=== PATIENT | female | born 1970 | race African-American/Black ===

== ENCOUNTER 2019-05-02 12:00 | Emergency (ER) | payer MEDICAID ==
[~2019-05-02] VITALS: Ht 167.6 cm; Wt 81.6 kg
[2019-05-02 12:04] VITALS: BP 145/96
--- NOTE | 2019-05-02 12:04 | NUR ---
PT TAKEN TO BED 5.
--- NOTE | 2019-05-02 12:17 | NUR ---
PT BIB SELF WITH C/O HEADACHE AND NAUSEA/VOMITTING S/P HERNIA SURGERY ON 04/29/2019. PER PT, STATES FEELING NOT GOOD AFTER SHE HAD THE HERNIA REPAIR. PT REPORTS HAVING FEVER SINCE HER HERNIA REPAI WITH EDWARDS, HAS N/ V. HX OF PARTIAL HYSTRECTOMY. LPM ABOUT A YEAR AGO. PT TAKES HYDROCODONE-ACETAMINOPHEN ONE TO TWO TAB Q6 HRS PRN . NO MEDS WAS TAKEN AT HOME TODAY. ER MD TO SEE THE PT. PROVIDED WITH URINE CUP FOR THE SPECIMEN COLLECTION. WILL CONTINUE TO MONITOR PT.
[2019-05-02 13:46] LABS: APPEARANCE,URINE HAZY (CLEAR); BILIRUBIN,URINE 1+ (NEGATIVE); BLOOD, URINE TRACE-I (NEGATIVE); COLOR,URINE YELLOW (YELLOW); LEUKOCYTE ESTERASE ,URINE 1+ (NEGATIVE); NITRITE, URINE NEGATIVE (NEGATIVE); UGLUCOSE NEGATIVE (NEGATIVE)
[2019-05-02 13:47] LABS: BASOPHILS % (AUTO) 0.4 % (0.0-2.0); EOSINOPHILS # (AUTO) 0.1 K/uL (0-0.4); HEMATOCRIT 43.9 % (36-48); HEMOGLOBIN 14.4 g/dL (12.0-16.0); LYMPHOCYTES # (AUTO) 1.7 K/uL (2.5-16.5); MEAN CORPUSCULAR HEMOGLOBIN 29 pg (27-31); MEAN CORPUSCULAR HGB CONC 33 g/dL (33-37); MEAN CORPUSCULAR VOLUME 86.6 fL (80-94); MONOCYTES # (AUTO) 0.9 K/uL (0.8-1.0); MONOCYTES % (AUTO) 9.4 % (1.7-9.3); NEUTROPHILS # (AUTO) 7.1 K/uL (1.8-7.7); NEUTROPHILS % (AUTO) 72.2 % (42.2-75.2); PLATELET COUNT (AUTO) 188 K/uL (140-450); RED BLOOD CELL COUNT(AUTO) 5.07 MIL/uL (4.20-5.40); RED CELL DISTRIBUTION WIDTH 14.3 % (11.6-13.7); WHITE BLOOD COUNT (AUTO) 9.8 K/uL (4.8-10.8)
[2019-05-02 14:02] LABS: RBC,URINE 0-5 /HPF (0-5); WBC,URINE 0-5 /HPF (0-5)
[2019-05-02] MEDS ORDERED: NACL 0.9% 1,000 ML IV ONE (14:50)
[2019-05-02] MEDS ORDERED: HYDR-5122 PO (15:03)
--- NOTE | 2019-05-02 15:20 | NUR ---
TREID IV TWICE ON PT. RN MELISA TRYING TO GET THE IV .
[2019-05-02 15:24] LABS: ANION GAP 13.2 (8-16); CARBON DIOXIDE 27.6 mmol/L (21-32); POTASSIUM 3.8 mmol/L (3.5-5.1)
[2019-05-02 15:29] LABS: ALBUMIN 3.2 g/dL (3.4-5.0); TOTAL BILIRUBIN 0.8 mg/dL (0.0-1.0)
--- NOTE | 2019-05-02 15:50 | NUR ---
UNABLE TO OBTAIN IV ACCESS, DR CUNNINGHAM MADE AWARE, OK TO CT W/O CONTRAST.
--- NOTE | 2019-05-02 15:58 | NUR ---
PT TO BE TAKEN TO CT VIA W/C.
--- NOTE | 2019-05-02 16:24 | NUR ---
UNABLE TO START IV ON THE PT. HAD CT WITHOUT CONTRAST. PT RESTING COMFORTABLY IN HER BED.
[2019-05-02] MEDS ORDERED: PIPERACILLIN/TAZOBACTAM 3.375 GM in DEXTROSE 5% 50 ML IV ONE (17:55)
[2019-05-02] MEDS ORDERED: PIPERACILLIN/TAZOBACTAM 3.375 GM VIAL IV ONE (17:58)
[2019-05-02] MEDS ORDERED: ACETAMINOPHEN EXTRA STRENGTH 500 MG TAB PO ONE (18:55)
--- NOTE | 2019-05-02 19:25 | NUR ---
REPORT GIVEN TO PM RN AT BEDSIDE. ABX IV COMPLETED.
[2019-05-02 19:55] VITALS: BP 157/78
--- NOTE | 2019-05-02 19:55 | NUR ---
VSS. PT AMBULATED TO RESTROOM. STEADY GAIT. GAVE PREPORT TO [facility] FOR TRANSFER TO [facility].
--- NOTE | 2019-05-05 07:41 | NUR ---
Late entry. COnfirmed with RN that 1000ml 0.9 NS IV completed at 1800.
== END 2019-05-02 20:36 | disposition short-term general hospital (02) ==
LOC: MED 12:00
DX: R11.2 Nausea with vomiting, unspecified (principal); R42 Dizziness and giddiness; Z79.899 Other long term (current) drug therapy; Z90.710 Acquired absence of both cervix and uterus; Z98.890 Other specified postprocedural states
CPT/HCPCS: 36415; 74176; 80053; 81001; 81025; 85025; 87086; 96361; 96365; 99285; J2543

== ENCOUNTER 2020-09-29 21:51 | Emergency (ER) | payer MEDICAID ==
[~2020-09-29] VITALS: Ht 167.6 cm; Wt 77.1 kg
[~2020-09-29 21:51] MED LIST: HYDR-5122 PO
[2020-09-29 21:56] VITALS: BP_SYST 107; BP_SYST 215; BP_DIAS 100; BP_DIAS 78
--- NOTE | 2020-09-29 21:56 | NUR ---
to bed ambulatory
--- NOTE | 2020-09-29 22:01 | NUR ---
Pt c/o vaginal bleeding with clots x1 month. States she has to change pads 3-4x/day. Last regular menstrual period was three years ago. Denies urinary symptoms. Hx of HTN. A/Ox4, ambulatory with steady gait. Noted with generalized edema.
[2020-09-29] MEDS ORDERED: NACL 0.9% 1,000 ML IV ONE (22:15)
[2020-09-29 22:42] LABS: BASOPHILS # (AUTO) 0.1 K/uL (0.00-0.22); EOSINOPHILS # (AUTO) 0.1 K/uL (0-0.4); EOSINOPHILS % (AUTO) 2.1 % (0.0-4.0); LYMPHOCYTES # (AUTO) 2.1 K/uL (2.5-16.5); LYMPHOCYTES % (AUTO) 33.6 % (20.5-51.1); MEAN CORPUSCULAR HEMOGLOBIN 29 pg (27-31); MEAN CORPUSCULAR HGB CONC 33 g/dL (33-37); MONOCYTES # (AUTO) 0.6 K/uL (0.8-1.0); NEUTROPHILS # (AUTO) 3.4 K/uL (1.8-7.7); NEUTROPHILS % (AUTO) 54.3 % (42.2-75.2); PLATELET COUNT (AUTO) 238 K/uL (140-450); RED BLOOD CELL COUNT(AUTO) 4.18 MIL/uL (4.20-5.40); RED CELL DISTRIBUTION WIDTH 14.8 % (11.6-13.7); WHITE BLOOD COUNT (AUTO) 6.2 K/uL (4.8-10.8)
[2020-09-29 22:59] LABS: PROTHROMBIN TIME 9.7 secs (10.8-13.4)
[2020-09-29 23:00] LABS: ALBUMIN 3.5 g/dL (3.4-5.0); ANION GAP 10.8 (8-16); CARBON DIOXIDE 28.9 mmol/L (21-32); CREATININE 1.1 mg/dL (0.6-1.3); POTASSIUM 3.7 mmol/L (3.5-5.1); TOTAL BILIRUBIN 0.3 mg/dL (0.0-1.0)
--- NOTE | 2020-09-30 00:41 | NUR ---
Pt resting in bed receiving IV fluids. VSS.
[2020-09-30 01:17] VITALS: BP 121/84
--- NOTE | 2020-09-30 01:18 | NUR ---
Patient discharged with v/s stable. Written and verbal after care instructions given and explained. Patient alert, oriented and verbalized understanding of instructions. Ambulatory with steady gait. All questions addressed prior to discharge. ID band and IV removed, pressure applied. Patient advised to follow up with PMD. Rx of Motrin and Provera given. Patient educated on indication of medication including possible reaction and side effects. Opportunity to ask questions provided and answered.
--- NOTE | 2020-09-30 01:21 | NUR ---
Pt provided transportation via taxi.
--- NOTE | 2020-09-30 22:25 | NUR ---
LATE ENTRY- Normal saline 0.9% IV fluids discontinued at 0230
== END 2020-09-30 01:17 | disposition home or self-care (01) ==
LOC: MED 21:51
DX: N93.9 Abnormal uterine and vaginal bleeding, unspecified (principal); I10 Essential (primary) hypertension; Z79.899 Other long term (current) drug therapy
CPT/HCPCS: 36415; 76856; 80053; 85025; 85610; 85730; 86886; 86900; 86901; 96360; 96361; 99284

== ENCOUNTER 2020-10-18 22:20 | Emergency (ER) | payer MEDICAID ==
[~2020-10-18] VITALS: Ht 167.6 cm; Wt 124.0 kg
[2020-10-18 22:30] VITALS: BP 170/110
--- NOTE | 2020-10-18 22:30 | NUR ---
to bed ambulatory
--- NOTE | 2020-10-18 22:35 | NUR ---
PATIENT 50 Y/O FEMALE BIB SELF FOR C/O VANGINAL BLEEDING AND SOB X 1 MONTH. PATIENT STATES 5/10 SHARP INTERMITTENT PELVIC PAIN. PER PATIENT BLEEDING IS HEAVY AND NOTED WITH CLOTTING. PATIENT STATES SHE NOTED, "MY STOMACH FEELS BLOTED." BS NOTED X 4 QUADRANTS. ABD IS SOFT, ROUND, AND NON-TENDER TO TOUCH. PATIENT ADMITS TO UMBILICAL HERNIA X 6 MONTHS AGO. PATIENT NOTED WITH WHEEZING UPON EXPIRATION WHEN AMBUALTING. PATIENT @ 98% ON RA. PATIENT DENIES CP. PATIENT REMAIN ON VIDEO [employer]. VSS. SEE COMEPLTE ASSESMENT FOR FUTHER DETAILS. MEDHX: HTN, FIBROIDS, MYOMECTOMY ALLERGIES: NKA
--- NOTE | 2020-10-18 22:36 | NUR ---
PATIENT AMBUALTED TO RESTROOM WITH STEADY GAIT. PATIENT UNABLE TO PROVIDE URINE SAMPLE AT THIS TIME.
--- NOTE | 2020-10-18 22:40 | NUR ---
ERMD AT BEDSIDE EVALUATING PATIENT.
--- NOTE | 2020-10-18 23:12 | NUR ---
LAB AT BEDSIDE.
--- NOTE | 2020-10-18 23:22 | NUR ---
PATIENT WALKED TO RESTROOM WITH STEADY GAIT. UNABLE TO PROVIDE URINE SAMPLE AT THIS TIME. RICKEY MADE AWARE.
--- NOTE | 2020-10-18 23:30 | NUR ---
US BEING PERFORMED AT BEDSIDE.
[2020-10-18 23:44] LABS: ALBUMIN 3.6 g/dL (3.4-5.0); ANION GAP 12.5 (8-16); CARBON DIOXIDE 25.8 mmol/L (21-32); POTASSIUM 3.3 mmol/L (3.5-5.1); TOTAL BILIRUBIN 0.4 mg/dL (0.0-1.0)
--- NOTE | 2020-10-18 23:49 | NUR ---
EKG BEING PERFORMED AT BEDSIDE.
[2020-10-18 23:51] LABS: BASOPHILS # (AUTO) 0.1 K/uL (0.00-0.22); BASOPHILS % (AUTO) 0.8 % (0.0-2.0); EOSINOPHILS # (AUTO) 0.1 K/uL (0-0.4); EOSINOPHILS % (AUTO) 2.2 % (0.0-4.0); HEMATOCRIT 35.7 % (36-48); HEMOGLOBIN 11.5 g/dL (12.0-16.0); LYMPHOCYTES % (AUTO) 31.2 % (20.5-51.1); MEAN CORPUSCULAR HEMOGLOBIN 27 pg (27-31); MEAN CORPUSCULAR HGB CONC 32 g/dL (33-37); MEAN CORPUSCULAR VOLUME 82.6 fL (80-94); MONOCYTES # (AUTO) 0.7 K/uL (0.8-1.0); NEUTROPHILS # (AUTO) 3.6 K/uL (1.8-7.7); NEUTROPHILS % (AUTO) 54.8 % (42.2-75.2); PLATELET COUNT (AUTO) 250 K/uL (140-450); RED BLOOD CELL COUNT(AUTO) 4.32 MIL/uL (4.20-5.40); RED CELL DISTRIBUTION WIDTH 14.9 % (11.6-13.7); WHITE BLOOD COUNT (AUTO) 6.5 K/uL (4.8-10.8)
--- NOTE | 2020-10-19 00:16 | NUR ---
PATIENT STATES UNABLE TO PROVIDE URINE SAMPLE AT THIS TIME. RICKEY MADE AWARE.
[2020-10-19] MEDS ORDERED: lisinopriL 20 MG TAB ONE (00:55)
[2020-10-19] MEDS ORDERED: lisinopriL 20 MG TAB PO ONE (00:55)
--- NOTE | 2020-10-19 01:03 | NUR ---
ABG BEING PERFORMED AT BEDSIDE.
[2020-10-19] MEDS ORDERED: ONDA4TAB PO (01:08)
[2020-10-19] MEDS ORDERED: NITR100C7 PO (01:08)
[2020-10-19] MEDS ORDERED: HYDR-39 PO (01:24)
[2020-10-19] MEDS ORDERED: MEDR10TA PO (01:24)
--- NOTE | 2020-10-19 01:28 | NUR ---
RICKEY KWAW AT BEDSIDE GOING OVER TEST RESULTS.
[2020-10-19 01:35] VITALS: BP 138/84
--- NOTE | 2020-10-19 01:35 | NUR ---
Patient discharged with v/s stable. Written and verbal after care instructions given and explained. Patient alert, oriented and verbalized understanding of instructions. Ambulatory with steady gait. All questions addressed prior to discharge. ID band removed. Patient advised to follow up with PMD. Rx of LISINOPRIL, PROVERA given. Patient educated on indication of medication including possible reaction and side effects. Opportunity to ask questions provided and answered.
== END 2020-10-19 01:35 | disposition home or self-care (01) ==
LOC: MED 22:20
DX: N93.8 Other specified abnormal uterine and vaginal bleeding (principal); I11.9 Hypertensive heart disease without heart failure; Z79.899 Other long term (current) drug therapy
CPT/HCPCS: 36415; 36600; 71045; 76856; 80053; 82803; 85025; 86886; 86900; 86901; 93005; 99285

== ENCOUNTER 2022-03-31 15:16 | Emergency (ER) | payer MEDICAID ==
[~2022-03-31] VITALS: Ht 167.6 cm; Wt 108.9 kg
[~2022-03-31 15:16] MED LIST changes: +HYDR-2853 PO; +MEDR10TA PO
[2022-03-31 15:24] VITALS: BP 146/107
[2022-03-31] MEDS ORDERED: KETOROLAC 30 MG/ML VIAL IM ONE (17:45)
--- NOTE | 2022-03-31 17:55 | NUR ---
pt ambulated to bed 05 at this time
--- NOTE | 2022-03-31 18:07 | NUR ---
pt left room at this time
--- NOTE | 2022-03-31 18:08 | NUR ---
SLING APPLIED TO L ARM
== END 2022-03-31 18:07 | disposition home or self-care (01) ==
LOC: MED 15:16
DX: M25.519 Pain in unspecified shoulder (principal); M54.2 Cervicalgia; I10 Essential (primary) hypertension; I25.10 Atherosclerotic heart disease of native coronary artery without angina pectoris
CPT/HCPCS: 96372; 99283; J1885